=== PATIENT | male | born 1940 | race Hispanic/Latino ===

== ENCOUNTER 2018-12-25 06:15 | Emergency (ER) | payer MEDICARE ==
[2018-12-25 07:07] LABS: BILIRUBIN,URINE Negative (NEGATIVE); COLOR,URINE Yellow (YELLOW); GLUCOSE, URINE (UA) Negative (NEGATIVE); KETONES,URINE Negative (NEGATIVE); LEUKOCYTE ESTERASE ,URINE Large (NEGATIVE); NITRATE,URINE Negative (NEGATIVE); OCCULT BLOOD,URINE Trace (NEGATIVE); PROTEIN,URINE POS 1+ mg/dL (NEGATIVE)
[2018-12-25 07:13] LABS: BASOPHILS % (AUTO) 0.4 % (0.0-5.0); EOSINOPHILS % (AUTO) 1.8 % (0.0-8.0); LYMPHOCYTES % (AUTO) 13.1 % (21.0-51.0); MEAN CORPUSCULAR HEMOGLOBIN 28.9 pg (27.0-33.0); MEAN CORPUSCULAR HGB CONC 33.4 g/dL (32.0-36.0); MEAN CORPUSCULAR VOLUME 86.4 fL (79-99); MONOCYTES % (AUTO) 7.6 % (3.0-13.0); NEUTROPHILS % (AUTO) 77.1 % (40.0-77.0); PLATELET COUNT (AUTO) 151 K/uL (130-400); RED BLOOD CELL COUNT(AUTO) 4.39 MIL/uL (4.50-6.20); RED CELL DISTRIBUTION WIDTH 14.2 % (11.0-15.5); WHITE BLOOD COUNT (AUTO) 6.3 K/uL (4.8-10.8)
[2018-12-25 07:16] LABS: APPEARANCE,URINE Turbid (CLEAR)
[2018-12-25] MEDS ORDERED: FLUCONAZOLE 100 MG TAB ONE (07:18)
[2018-12-25 07:20] LABS: CREATININE 1.1 mg/dL (0.5-1.5); POTASSIUM 4.9 mmol/L (3.5-5.1)
[2018-12-25 07:23] LABS: RBC,URINE 0-1 /HPF (0-1)
[2018-12-25 07:24] LABS: BACTERIA,URINE Many /HPF (None Seen); WBC,URINE TNTC /HPF (0-1)
[2018-12-25 07:26] LABS: ALBUMIN 3.6 g/dL (3.5-5.0); BILIRUBIN,TOTAL 0.6 mg/dL (0.2-1.0)
[2018-12-25] MEDS ORDERED: CEFTRIAXONE SODIUM 1 GM ONE (07:30)
[2018-12-25] MEDS ORDERED: SODIUM CHLORIDE 0.9% 50 ML IV ONE (07:31)
[2018-12-25] MEDS ORDERED: LIDOCAINE HCL 1% 20 ML VIAL ONE (08:49)
[2018-12-25] MEDS ORDERED: BUPIVACAINE/PF 0.5% 30ML VIAL ONE (08:49)
== END 2018-12-25 11:35 | disposition home or self-care (01) ==
LOC: EDH 06:15
DX: N39.0 Urinary tract infection, site not specified (principal); N47.1 Phimosis; N40.0 Benign prostatic hyperplasia without lower urinary tract symptoms; R33.9 Retention of urine, unspecified; I10 Essential (primary) hypertension; E11.9 Type 2 diabetes mellitus without complications; Z87.891 Personal history of nicotine dependence
CPT/HCPCS: 36415; 54001; 80053; 81001; 85025; 96365; 99284; J0696; J3490

== ENCOUNTER 2019-01-20 07:40 | Day surgery (SDC) | payer OTHER, MEDICARE ==
[2019-01-18 15:48] LABS: CREATININE 1.2 mg/dL (0.5-1.5); POTASSIUM 4.5 mmol/L (3.5-5.1)
[2019-01-18 15:49] LABS: BASOPHILS % (AUTO) 0.4 % (0.0-5.0); EOSINOPHILS % (AUTO) 2.2 % (0.0-8.0); HEMATOCRIT 39.5 % (42-54); LYMPHOCYTES % (AUTO) 20.7 % (21.0-51.0); MEAN CORPUSCULAR HEMOGLOBIN 29.3 pg (27.0-33.0); MEAN CORPUSCULAR HGB CONC 34.1 g/dL (32.0-36.0); MEAN CORPUSCULAR VOLUME 86.2 fL (79-99); MONOCYTES % (AUTO) 9.2 % (3.0-13.0); NEUTROPHILS % (AUTO) 67.5 % (40.0-77.0); NUCLEATED RED BLOOD CELLS 0.1 % (0.0-0.19); PLATELET COUNT (AUTO) 140 K/uL (130-400); RED BLOOD CELL COUNT(AUTO) 4.59 MIL/uL (4.50-6.20); RED CELL DISTRIBUTION WIDTH 14.1 % (11.0-15.5); WHITE BLOOD COUNT (AUTO) 4.7 K/uL (4.8-10.8)
[2019-01-18 15:55] VITALS: BP 183/77
--- NOTE | 2019-01-18 16:38 | NUR ---
EKG INFORMED DR. HEREDIA OF ABNORMAL EKG. REQUESTING LAST PROGRESS REPORT FROM DR. COPE OFFICE. PER DR. HEREDIA, PROCEED WITH PLANNED PROCEDURE.
[2019-01-20] VITALS (18 sets, daily range): BP systolic 128–189; BP diastolic 65–91
[~2019-01-20] VITALS: Ht 170.2 cm; Wt 89.1 kg
[~2019-01-20 07:40] MED LIST: ASPI-555 PO; ATOR20TA65 PO; CARV12.511 PO; CEFTRIAXONE SODIUM 1 GM IVP SCH; CEPH500T PO; CLONIDINE PO; DORZ1DRO7 OD; DULA1.5P SQ; GLIP10TA9 PO; INSU100I24 SQ; LOSA1TAB37 PO; MUPI22OI2 TP; NEO/3.5O18 OD; NITR0.4T50 SL; SPIR25TA6 PO; TAMS-1 PO
[2019-01-20] MEDS ORDERED: SODIUM CHLORIDE 0.9% 1000ML 1,000 ML IV ONE (09:48)
--- NOTE | 2019-01-20 10:16 | NUR ---
EYE SURGERY HAD RIGHT CATARACT SURGERY LAST WEDNESDAY ,HAS DIFFICULTY OPENING THE EYE LID Addendum: 01/20/19 at 1019 by JUANJOSE CORNEJO RN RN Amended: Links added.
[2019-01-20] MEDS ORDERED: BACITRACIN 28.4 GM OINT TP ONE (11:31)
[2019-01-20] MEDS ORDERED: BUPIVACAINE/PF 0.25% 30ML VIAL IJ ONE (11:32)
[2019-01-20] MEDS ORDERED: LIDOCAINE HCL 1% 20 ML VIAL ONE (11:32)
[2019-01-20] MEDS ORDERED: DEXAMETHASONE SOD PHOSPHATE 10MG/ML 1ML VIAL ONE (12:01)
[2019-01-20] MEDS ORDERED: MIDAZOLAM HCL 1 MG/ML 2ML VIAL ONE (12:01)
[2019-01-20] MEDS ORDERED: LIDOCAINE PF 2% 5ML ABBOJECT ONE (12:01)
[2019-01-20] MEDS ORDERED: PROPOFOL 10 MG/ML 20ML VIAL IV ONE (12:02)
[2019-01-20] MEDS ORDERED: FENTANYL CITRATE PF 50 MCG/1 ML 2ML VIAL ONE (12:02)
[2019-01-20] MEDS ORDERED: ONDANSETRON HCL 4 MG/2 ML VIAL ONE (12:02)
[2019-01-20] MEDS ORDERED: CEFTRIAXONE SODIUM 1 GM IVP ONE (12:10)
[2019-01-20] MEDS ORDERED: EPHEDRINE SULFATE 50 MG/ML AMPULE ONE (12:45)
[2019-01-20] MEDS ORDERED: HYDRALAZINE HCL 20 MG/ML VIAL ONE (13:34)
--- NOTE | 2019-01-20 14:19 | NUR ---
RECEIVE PT RECEIVED FROM PACU AWAKE ALERT ORIENTED X3. STABLE. NO COMPLAINTS MADE. DRESSING TO PENIS DRY AND INTACT, NO BLEEDING NOTED. CALL METZGER WITHIN REACH, CALLED DAUGHTER TO COME IN TO ROOM.
--- NOTE | 2019-01-20 15:15 | NUR ---
DRESSING PT'S PENILE DRESSING FELL OFF WHILE GETTING DRESSED. INCISION INTACT. DEZ BLACKBURN FROM OR CAME TO REDO DRESSING TO PENIS, STERILE FASHION. APPLIED BACITRACIN.
--- NOTE | 2019-01-20 15:45 | NUR ---
DISCHARGE PT DISCHARGED VIA WHEELCHAIR WITH DAUGHTER. PT STABLE. NO COMPLAINTS MADE. DRESSING TO PENIS DRY AND INTACT. NO BLEEDING NOTED. DISCHARGE INSTRUCTIONS GIVEN TO DAUGHTER EARLIER, VERBALIZED UNDERSTANDING.
== END 2019-01-20 15:45 | disposition home or self-care (01) ==
LOC: DAH 07:40
PROVIDERS: ATTEND Urology
DX: N47.1 Phimosis (principal); I25.10 Atherosclerotic heart disease of native coronary artery without angina pectoris; I10 Essential (primary) hypertension; E11.9 Type 2 diabetes mellitus without complications; Z79.899 Other long term (current) drug therapy
CPT/HCPCS: 36415; 54150; 80048; 82948 ×2; 85025; 88304; 93005; A4215; A4221; A4222; A4223; A4510; A4600; A4663; J0360; J0696 ×2; J1100; J2001; J2250; J2405; J2704; J3010; J3490 ×2; J7030